=== PATIENT | female | born 1935 | race Caucasian/White ===

== ENCOUNTER 2020-10-23 05:55 | Day surgery (SDC) | payer OTHER, SELFPAY ==
[2020-10-19 11:28] LABS: BASOPHILS % (AUTO) 0.7 % (0.0-2.0); BILIRUBIN,URINE NEGATIVE (NEGATIVE); BLOOD, URINE 1+ (NEGATIVE); CLARITY/URINE CLEAR (CLEAR); COLOR,URINE YELLOW (YELLOW); EOSINOPHILS # (AUTO) 0.3 K/uL (0.0-0.4); EOSINOPHILS % (AUTO) 4.6 % (0.0-4.0); GLUCOSE,URINE NEGATIVE (NEGATIVE); HEMATOCRIT 44.2 % (36-48); HEMOGLOBIN 14.6 g/dL (12.0-16.0); KETONES,URINE NEGATIVE (NEGATIVE); LEUKOCYTE ESTERASE ,URINE NEGATIVE (NEGATIVE); LYMPHOCYTES # (AUTO) 1.6 K/uL (1.0-5.5); LYMPHOCYTES % (AUTO) 27.7 % (20.5-51.5); MEAN CORPUSCULAR HEMOGLOBIN 29 pg (27-31); MEAN CORPUSCULAR HGB CONC 33 % (32-36); MEAN CORPUSCULAR VOLUME 87 fL (79.0-98.0); MONOCYTES # (AUTO) 0.5 K/uL (0.0-1.0); MONOCYTES % (AUTO) 8.7 % (1.7-9.3); NEUTROPHILS # (AUTO) 3.4 K/uL (1.8-7.7); NEUTROPHILS % (AUTO) 58.3 % (40.0-70.0); NITRITE, URINE NEGATIVE (NEGATIVE); PH,URINE 5.5 (5.0-8.0); PLATELET COUNT (AUTO) 144 K/uL (130-430); PROTEIN URINE NEGATIVE (NEGATIVE); RED BLOOD CELL COUNT(AUTO) 5.09 MIL/uL (4.2-6.2); UROBILINOGEN,URINE 0.2 (0.2-1.0); WHITE BLOOD COUNT (AUTO) 5.8 K/uL (4.8-10.8)
[2020-10-19 11:42] LABS: PROTHROMBIN TIME 9.9 SECS (9.5-12.5)
[2020-10-19 11:43] LABS: ALANINE AMINOTRANSFERASE 22 U/L (12-78); ALBUMIN 3.8 g/dL (3.4-4.8); ANION GAP 9 (5-15); ASPARTATE AMINOTRANSFERASE 19 U/L (10-37); CALCIUM 9.8 mg/dL (8.4-11.0); CHLORIDE 104 mmol/L (98-107); CREATININE 0.93 mg/dL (0.55-1.30); GLUCOSE 96 mg/dL (70-99); POTASSIUM 3.9 mmol/L (3.5-5.1); SODIUM SERUM 144 mmol/L (136-145); TOTAL BILIRUBIN 0.6 mg/dL (0.0-1.0); UREA NITROGEN, BLOOD 17 mg/dL (8-21)
[2020-10-19 12:21] LABS: BACTERIA,URINE RARE /HPF (None Seen); MUCUS,URINE 1+ /LPF (None Seen); RBC,URINE 0-3 /HPF (0-3); WBC,URINE 0-3 /HPF (0-3)
[~2020-10-23] VITALS: Ht 157.5 cm; Wt 69.9 kg
[2020-10-23] MEDS ORDERED: CEFAZOLIN SOD 2 GM in D5W 50 ML IV ONE (07:00)
[2020-10-23] MEDS ORDERED: ONDANSETRON HCL 4 MG/2 ML VIAL IVP ONE (07:36)
[2020-10-23] MEDS ORDERED: SEVOFLURANE 15 MIN GAS INH ONE (07:36)
[2020-10-23] MEDS ORDERED: NS 1000 ML IV.SOLN IV ONE (07:36)
[2020-10-23] MEDS ORDERED: CEFAZOLIN 2 GM IVPB PREMIX 50 ML IV ONE (07:36)
[2020-10-23] MEDS ORDERED: MIDAZOLAM HCL 5 MG/5 ML VIAL IVP ONE (07:36)
[2020-10-23] MEDS ORDERED: LR 500 ML IV.SOLN IV ONE (07:36)
[2020-10-23] MEDS ORDERED: KETOROLAC TROMETHAMINE 15 MG VIAL IVP ONE (07:36)
[2020-10-23] MEDS ORDERED: PROPOFOL 200MG/ 20ML VIAL (DIPRIVAN) IV ONE (07:36)
[2020-10-23] MEDS ORDERED: PHENYLEPHRINE HCL 10 MG/ML VIAL (NEOSYNEPHRINE) IV ONE (07:36)
[2020-10-23] MEDS ORDERED: HYDROmorphone 1 MG INJ. 1 MG/ML CARTRIDGE IVP PRN (09:00)
[2020-10-23] MEDS ORDERED: ePHEDrine sulfate 50 MG/ML VIAL IVP PRN (09:00)
[2020-10-23] MEDS ORDERED: LR 1,000 ML IV SCH (09:00)
[2020-10-23] MEDS ORDERED: MEPERIDINE HCL/PF 25 MG/ML DISP.SYRIN IVP PRN (09:00)
[2020-10-23] MEDS ORDERED: NALOXONE HCL 0.4 MG/ML AMP (NARCAN) IVP PRN (09:00)
[2020-10-23] MEDS ORDERED: hydrALAZINE HCL 20 MG/ML VIAL IVP PRN (09:00)
[2020-10-23] MEDS ORDERED: IBUPROFEN 600 MG TABLET PO SCH (09:00)
[2020-10-23] MEDS ORDERED: ONDANSETRON HCL 4 MG/2 ML VIAL IVP PRN ×2 (09:00)
[2020-10-23] MEDS ORDERED: LABETALOL 100 MG/ 20ML VIAL IVP PRN (09:00)
[2020-10-23 10:05] VITALS: BP_SYST 155
== END 2020-10-23 11:20 | disposition home or self-care (01) ==
LOC: SDS 05:55 → SMU 05:55 → SDS 11:20
PROVIDERS: ATTEND Obstetrics & Gynecology Gynecology
DX: N95.0 Postmenopausal bleeding (principal); R93.89 Abnormal findings on diagnostic imaging of other specified body structures; I10 Essential (primary) hypertension; M81.0 Age-related osteoporosis without current pathological fracture; N88.2 Stricture and stenosis of cervix uteri; Z20.828 Contact with and (suspected) exposure to other viral communicable diseases; Z79.899 Other long term (current) drug therapy
CPT/HCPCS: 36415 ×2; 58558; 71045; 80053; 81000; 85025; 85610; 85730; 86886; 86900; 86901; 88305; 93005; C1819; J0690 ×2; J1885; J2250; J2370; J2405; J2704; J7030; J7060; J7120; U0003